=== PATIENT | female | born 2000 | race Caucasian/White ===

== ENCOUNTER 2020-09-14 13:51 | Emergency (ER) | payer SELFPAY | END 2020-09-14 15:15 | disposition home or self-care (01) | LOC: CSHERS 13:51 | DX: J02.9 Acute pharyngitis, unspecified (principal) | CPT/HCPCS: 87081; 87430; 99283 ==

== ENCOUNTER 2021-12-18 14:33 | Emergency (ER) | payer SELFPAY ==
[~2021-12-18 14:33] MED LIST: Iopamidol 300 61% 100 ML VIAL FS ONE
[2021-12-18 17:04] LABS: Pregnancy Test - Urine (BHCG) Negative (Negative); Pregu Control Background? CLEAR/WHITE (CLR/WHITE); Pregu Control Bar Appear? YES (CONTROL BAR)
== END 2021-12-18 18:28 | disposition home or self-care (01) ==
LOC: EEVIPCON 14:33 → CSHERS 14:33
DX: S20.211A Contusion of right front wall of thorax, initial encounter (principal); X58.XXXA Exposure to other specified factors, initial encounter
CPT/HCPCS: 74177; 81025; Q9967

== ENCOUNTER 2022-09-01 15:36 | Emergency (ER) | payer OTHER, SELFPAY | END 2022-09-01 16:31 | disposition home or self-care (01) | LOC: CSHERS 15:36 | DX: S01.112D Laceration without foreign body of left eyelid and periocular area, subsequent encounter (principal); V87.8XXD Person injured in other specified noncollision transport accidents involving motor vehicle (traffic), subsequent encounter | CPT/HCPCS: 99283 ==